=== PATIENT | male | born 1965 | race African-American/Black ===

== ENCOUNTER 2018-10-08 10:03 | Inpatient (IN) | payer OTHER ==
--- NOTE | 2018-10-08 12:00 | HP ---
COWS - Scale Resting Pulse: 1= SD 81-100 Sweatin= Chills/Flushing Restless Observation: 3= Extraneous Movement Pupil Size: 1= Pupils >than Normal Bone or Joint Aches: 2= Severe Diffuse Aches Runny Nose/ Eye Tearin= Runny Nose/Eyes GI Upset > 30mins: 2= Nausea/Diarrhea Tremor Observation: 2= Slight Tremor Visible Yawning Observation: 2= >3x During Session Anxiety or Irritability: 2=Irritable/Anxious Goose Flesh Skin: 0=Smooth Skin COWS Score: 18 CIWA Score - Admission Criteria [facility] Guidelines: Admission for Medically Managed Detox: Requires at least one of the followin. CIWA greater than 12 2. Seizures within the past 24 hours 3. Delirium tremens within the past 24 hours 4. Hallucinations within the past 24 hours 5. Acute intervention needed for co occurring medical disorder 6. Acute intervention needed for co occurring psychiatric disorder 7. Severe withdrawal that cannot be handled at a lower level of care (continued vomiting, continued diarrhea, abnormal vital signs) requiring intravenous medication and/or fluids 8. Admission ROS [facility] - [facility] Chief Complaint: i need help to stop using heroin and cocaine Allergies/Adverse Reactions: Allergies Allergy/AdvReac Type Severity Reaction Status Date / Time No Known Allergies Allergy Verified 10/08/18 10:28 History of Present Illness: this 53 years old male with heroin and cocaine dependence,seeking detox, withdrawal symptom, last detox 2008 [facility] s/p below knee amputation let in 2014 for osteomyelitis nicotine dependence 1/2 pack/day,requesting nicotine patch and gum weight loss insomnia iddm plan for rehab after detox also has hypertension and hyperchiolestrolemia Exam Limitations: No Limitations - Ebola screening Have you traveled outside of the country in the last 21 days: No Have you had contact with anyone from an Ebola affected area: No Do you have a fever: No - Review of Systems Constitutional: Chills, Loss of Appetite, Malaise, Night Sweats, Changes in sleep, Weakness, Unintentional Wgt. Loss EENT: reports: Tearing, Nose Congestion Respiratory: reports: No Symptoms reported Cardiac: reports: No Symptoms Reported GI: reports: Nausea, Vomiting, Abdominal cramping : reports: No Symptoms Reported Musculoskeletal: reports: Back Pain, Muscle Pain Integumentary: reports: Dryness Neuro: reports: Headache, Tremors Endocrine: reports: No Symptoms Reported Hematology: reports: No Symptoms Reported Psychiatric: reports: No Sypmtoms Reported, Judgement Intact, Mood/Affect Appropiate, Orientated x3, other (insomnia) Patient History - Patient Medical History Hx Anemia: No Hx Asthma: No Hx Chronic Obstructive Pulmonary Disease (COPD): No Hx Cancer: No Hx Cardiac Disorders: No Hx Congestive Heart Failure: No Hx Hypertension: Yes (on med) Hx Hypercholesterolemia: Yes (on med) Hx Pacemaker: No HX Cerebrovascular Accident: No Hx Seizures: No Hx Dementia: No Hx Diabetes: Yes (iddm) Hx Gastrointestinal Disorders: No Hx Liver Disease: No Hx Genitourinary Disorders: No Hx Sexually Transmitted Disorders: No Hx Renal Disease (ESRD): No Hx Thyroid Disease: No Hx Human Immunodeficiency Virus (HIV): Yes (2015 since) Hx Hepatitis C: No Hx Depression: No Hx Suicide Attempt: No Hx Bipolar Disorder: No Hx Schizophrenia: No Other Medical History: insomnia,no suicidal,no homicidal - Patient Surgical History Past Surgical History: Yes Hx Orthopedic Surgery: Yes (s/p bk amputation left 2015) - PPD History Previous Implant?: Yes Documented Results: Negative w/o proof Implanted On Prior [facility] Admission?: No PPD to be Administered?: Yes - Smoking Cessation Smoking history: Current every day smoker Have you smoked in the past 12 months: Yes Aproximately how many cigarettes per day: 10 Cigars Per Day: 0 Hx Chewing Tobacco Use: No Initiated information on smoking cessation: Yes 'Breaking Loose' booklet given: 10/08/18 - Substance & Tx. History Hx Alcohol Use: No Hx Substance Use: Yes Substance Use Type: Cocaine, Heroin Hx Substance Use Treatment: Yes (2008 [facility]) - Substances abused Heroin Substance route: Inhalation Frequency: Daily Amount used: 3 bags Age of first use: 21 Date of last use: 10/07/18 Cocaine Substance route: Inhalation Frequency: 1-2 times per week Amount used: $500 Age of first use: 21 Date of last use: 10/07/18 Family Disease History - Family Disease History Family History: Denies Admission Physical Exam [facility]HS - Vital Signs Vital Signs: Vital Signs - 24 hr 10/08/18 10/08/18 10:32 10:59 Temperature 98 F 98 F Pulse Rate 87 87 Respiratory 18 18 Rate Blood Pressure 138/91 138/91 - Physical General Appearance: Yes: Moderate Distress, Tremorous, Irritable, Sweating, Anxious HEENTM: Yes: Normal ENT Inspection, Normocephalic, CAROL, Pharynx Normal Respiratory: Yes: Within Normal Limits, Lungs Clear, Normal Breath Sounds Neck: Yes: Within Normal Limits, Supple, Trachea in good position Breast: Yes: Within Normal Limits Cardiology: Yes: Within Normal Limits, Regular Rhythm, Regular Rate, S1, S2 Abdominal: Yes: Within Normal Limits, Normal Bowel Sounds, Non Tender, Flat, Soft Genitourinary: Yes: Within Normal Limits Back: Yes: Muscle Spasm Musculoskeletal: Yes: Back pain, Muscle Pain Extremities: Yes: Tremors, Other (s/p below knee amputation left) Neurological: Yes: 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 intact, Fully Oriented, Alert, Motor Strength 5/5 Integumentary: Yes: Dry Lymphatic: Yes: Within Normal Limits - Diagnostic (1) Opioid dependence with withdrawal Current Visit: Yes Status: Acute (2) Cocaine dependence Current Visit: Yes Status: Acute (3) Weight loss Current Visit: Yes Status: Acute (4) History of below knee amputation Current Visit: Yes Status: Acute (5) IDDM (insulin dependent diabetes mellitus) Current Visit: Yes Status: Acute (6) Nicotine dependence Current Visit: Yes Status: Acute Cleared for Admission [facility] - Detox or Rehab [facility] Level of Care: Medically Managed Detox Regimen/Protocol: Methadone Breathalyzer - Breathalyzer Breathalyzer: 0 Urine Drug Screen - Test Device Lot number: [id number] Expiration date: 05/07/20 - Control Is test valid?: Yes - Results Drug screen NEGATIVE: No Urine drug screen results: AUNDREA-Cocaine, MOP-Opiates Inpatient Rehab Admission - Rehab Decision to Admit Inpatient rehab admission?: No
[2018-10-08] MEDS ORDERED: MAG HYDROX/AL HYDROX/SIMETH 30 ML UNIT-DOSE CUP PO PRN (12:13)
[2018-10-08] MEDS ORDERED: METHOCARBAMOL 500 MG TABLET PO PRN (12:13)
[2018-10-08] MEDS ORDERED: MAGNESIUM HYDROX 2400MG/30ML ORAL SUSPENSION 30 ML CUP PO PRN (12:13)
[2018-10-08] MEDS ORDERED: MAGNESIUM CITRATE 300 ML BOTTLE PO PRN (12:13)
[2018-10-08] MEDS ORDERED: IBUPROFEN 400 MG TABLET (FP) PO PRN (12:13)
[2018-10-08] MEDS ORDERED: MELATONIN 5 MG TABLETS PO PRN (12:13)
[2018-10-08] MEDS ORDERED: BISMUTH SUBSALICYLATE 524 MG/30 ML UD PO PRN (12:13)
[2018-10-08] MEDS ORDERED: ACETAMINOPHEN 325 MG TABLET (FP) PO PRN ×2 (12:13)
[2018-10-08] MEDS ORDERED: MENTHOL/PHENOL 1 EACH UD MM PRN (12:13)
[2018-10-08] MEDS ORDERED: hydrOXYzine PAMOATE 25 MG CAPSULE (FP) PO PRN (12:13)
[2018-10-08] MEDS ORDERED: ALBUTEROL SO4 8 GM HFA INHALER IH PRN (12:20)
[2018-10-08] MEDS ORDERED: METHADONE HCL 10 MG TABLET (FOR DETOX USE ONLY) PO ONE ×2 (13:00→23:00)
[2018-10-08] MEDS: NICOTINE 21 MG/24 HOURS TOPICAL PATCH TD SCH (13:46)
[2018-10-08] MEDS: NICOTINE POLACRILEX 2 MG GUM BUC PRN (13:46)
[2018-10-08] MEDS: diazePAM 5 MG TABLET PO PRN ×3 (13:47→23:49)
[2018-10-08 16:57] LABS: HEMOGLOBIN 11.2 GM/dL (11.7-16.9); MCH 25.9 pg (25.7-33.7); MCHC 31.9 g/dl (32.0-35.9); MEAN CELL VOLUME 81.3 fl (80-96); MEAN PLT VOLUME 8.4 fl (7.5-11.1); PLATELET COUNT 382 K/MM3 (134-434); RDW 14.8 % (11.9-15.9); WHITE BLOOD COUNT 7.3 K/mm3 (4.0-10.0)
[2018-10-08] MEDS: cloNIDine HCL 0.1 MG TABLET PO PRN (17:11)
[2018-10-08] MEDS ORDERED: INSULIN SLIDING SCALE (NOVOLOG) 1 VIAL SQ ONE ×2 (17:11→23:56)
[2018-10-08] MEDS: INSULIN (NOVOLOG) ASPART 100 UNITS/ML 10ML VIAL SQ SCH (17:13)
[2018-10-08 17:19] LABS: ALBUMIN 2.8 g/dl (3.4-5.0); ALK PHOS 109 U/L (45-117); ANION GAP 6 MMOL/L (8-16); BILIRUBIN,TOTAL 0.3 mg/dL (0.2-1); BLOOD UREA NITROGEN 16 mg/dL (7-18); CHLORIDE 98 mmol/L (98-107); CO2 26 mmol/L (21-32); CREATININE 1.6 mg/dL (0.55-1.3); POTASSIUM 4.6 mmol/L (3.5-5.1); SGOT/AST 13 U/L (15-37); SGPT/ALT 20 U/L (13-61); SODIUM 130 mmol/L (136-145); TOT PROT 7.7 g/dl (6.4-8.2)
[2018-10-08 17:21] LABS: GLUCOSE,RANDOM 510 mg/dL (74-106)
[2018-10-08 21:06] LABS: SICKLE CELL SCREEN NEGATIVE (NEGATIVE)
[2018-10-08] MEDS: THIAMINE HCL 100 MG TABLET (FP) PO SCH (23:51)
[2018-10-09] MEDS: diazePAM 5 MG TABLET PO PRN ×3 (05:39→16:35)
[2018-10-09] MEDS: cloNIDine HCL 0.1 MG TABLET PO PRN ×3 (05:40→19:16)
[2018-10-09] MEDS: INSULIN (NOVOLOG MIX 70/30) 100 UNITS/ML MDV SQ SCH ×2 (06:16→16:47)
[2018-10-09] MEDS ORDERED: INSULIN SLIDING SCALE (NOVOLOG) 1 VIAL SQ ONE ×4 (07:30→21:14)
[2018-10-09] MEDS: INSULIN (NOVOLOG) ASPART 100 UNITS/ML 10ML VIAL SQ SCH ×5 (07:54→21:20)
--- NOTE | 2018-10-09 08:26 | EKG ---
Test Reason : Blood Pressure : / mmHG Vent. Rate : 080 BPM Atrial Rate : 080 BPM P-R Int : 184 ms QRS Dur : 098 ms QT Int : 348 ms P-R-T Axes : 074 069 053 degrees QTc Int : 401 ms NORMAL SINUS RHYTHM NORMAL ECG NO PREVIOUS ECGS AVAILABLE Confirmed by ASHELY MIRANDA, ZAINA ([id number]) on 10/09/2018 8:26:22 AM Referred By: Confirmed By:ZAINA LUND MD
[2018-10-09] MEDS ORDERED: METHADONE HCL 5 MG TABLET (FOR DETOX USE ONLY) PO ONE (10:00)
[2018-10-09] MEDS: PRENATAL VITAMINS W/ FOLIC ACID TABLET (FP) PO SCH (10:10)
[2018-10-09] MEDS: NICOTINE POLACRILEX 2 MG GUM BUC PRN (10:14)
[2018-10-09] MEDS: NICOTINE 21 MG/24 HOURS TOPICAL PATCH TD SCH (10:15)
--- NOTE | 2018-10-09 11:49 | PN ---
[facility] COWS - Scale Resting Pulse: 0= IL 80 or Below Sweatin= Beads of Sweat on Face Restless Observation: 3= Extraneous Movement Pupil Size: 0= Normal to Room Light Bone or Joint Aches: 2= Severe Diffuse Aches Runny Nose/ Eye Tearin= None GI Upset > 30mins: 0= None Tremor Observation of Outstretched Hands: 1= Tremor Ruby, Not Seen Yawning Observation: 2= >3x During Session Anxiety or Irritability: 1=Feels Anxious/Irritable Goose Flesh Skin: 0=Smooth Skin COWS Score: 12 BHS Progress Note (SOAP) Subjective: Sweats and headache Objective: 10/09/18 11:50 Vital Signs 10/09/18 10/09/18 05:59 09:35 Temperature 97.7 F 97.2 F L Pulse Rate 80 67 Respiratory 20 18 Rate Blood Pressure 149/65 128/74 Assessment: 10/09/18 11:50 AOX3, in no respiratory distress EENT: WNL full ROM, ambulates in the unit with a wheelchair. withdrawal symptoms persists. Plan: continue detox increase fluids monitor withdrawal symptoms.
[2018-10-09] MEDS ORDERED: INSULIN (NOVOLOG MIX 70/30) 100 UNITS/ML MDV SQ ONE (16:44)
[2018-10-09] MEDS: THIAMINE HCL 100 MG TABLET (FP) PO SCH (21:20)
[2018-10-10] MEDS: diazePAM 5 MG TABLET PO PRN ×4 (01:18→17:05)
[2018-10-10] MEDS: cloNIDine HCL 0.1 MG TABLET PO PRN ×3 (01:19→17:05)
[2018-10-10] MEDS: INSULIN (NOVOLOG MIX 70/30) 100 UNITS/ML MDV SQ SCH ×2 (07:32→17:03)
[2018-10-10] MEDS: INSULIN (NOVOLOG) ASPART 100 UNITS/ML 10ML VIAL SQ SCH ×4 (07:33→22:34)
[2018-10-10] MEDS ORDERED: METHADONE HCL 10 MG TABLET (FOR DETOX USE ONLY) PO ONE (10:00)
[2018-10-10] MEDS: PRENATAL VITAMINS W/ FOLIC ACID TABLET (FP) PO SCH (10:55)
[2018-10-10] MEDS: NICOTINE 21 MG/24 HOURS TOPICAL PATCH TD SCH (10:56)
--- NOTE | 2018-10-10 13:41 | PN ---
S COWS - Scale Resting Pulse: 1= SC 81-100 Sweatin= No chills or Flushing Restless Observation: 3= Extraneous Movement Pupil Size: 0= Normal to Room Light Bone or Joint Aches: 2= Severe Diffuse Aches Runny Nose/ Eye Tearin= Runny Nose/Eyes GI Upset > 30mins: 1= Stomach Cramp Tremor Observation of Outstretched Hands: 2= Slight Tremor Visible Yawning Observation: 0= None Anxiety or Irritability: 0= None Goose Flesh Skin: 0=Smooth Skin COWS Score: 11 S Progress Note (SOAP) Subjective: Sweating, interrupted sleep Objective: 10/10/18 13:37 Last Vital Signs Temp Pulse Resp BP Pulse Ox 98.9 F 82 18 125/72 10/10/18 10:24 10/10/18 10:24 10/10/18 10:24 10/10/18 10:24 Laboratory Tests 10/08/18 10/08/18 10/08/18 12:00 12:00 12:00 WBC 7.3 RBC 4.30 Hgb 11.2 L Hct 35.0 L MCV 81.3 MCH 25.9 MCHC 31.9 L RDW 14.8 Plt Count 382 MPV 8.4 Sickle Cell Screen Negative Sodium 130 L Potassium 4.6 Chloride 98 Carbon Dioxide 26 Anion Gap 6 L BUN 16 Creatinine 1.6 H Creat Clearance w eGFR 45.62 POC Glucometer Random Glucose 510 H* Calcium 9.0 Total Bilirubin 0.3 AST 13 L ALT 20 Alkaline Phosphatase 109 Total Protein 7.7 Albumin 2.8 L RPR Titer Nonreactive 10/08/18 10/08/18 10/09/18 17:01 23:58 05:37 WBC RBC Hgb Hct MCV MCH MCHC RDW Plt Count MPV Sickle Cell Screen Sodium Potassium Chloride Carbon Dioxide Anion Gap BUN Creatinine Creat Clearance w eGFR POC Glucometer 512 472 388 Random Glucose Calcium Total Bilirubin AST ALT Alkaline Phosphatase Total Protein Albumin RPR Titer 10/09/18 10/09/18 10/09/18 11:30 16:38 20:42 WBC RBC Hgb Hct MCV MCH MCHC RDW Plt Count MPV Sickle Cell Screen Sodium Potassium Chloride Carbon Dioxide Anion Gap BUN Creatinine Creat Clearance w eGFR POC Glucometer 244 422 227 Random Glucose Calcium Total Bilirubin AST ALT Alkaline Phosphatase Total Protein Albumin RPR Titer 10/10/18 10/10/18 06:38 11:23 WBC RBC Hgb Hct MCV MCH MCHC RDW Plt Count MPV Sickle Cell Screen Sodium Potassium Chloride Carbon Dioxide Anion Gap BUN Creatinine Creat Clearance w eGFR POC Glucometer 452 138 Random Glucose Calcium Total Bilirubin AST ALT Alkaline Phosphatase Total Protein Albumin RPR Titer Labs reviewed: elevated glucose (has DM: on insulin), mild anemia, AKIL, hyponatremia noted Assessment: 10/10/18 13:43 Withdrawal symptoms Noted with DMT2 with hyperglycemia, mild anemia, AKIL and hyponatremia Plan: Continue detox Encourage PO water intake DMT2 with hyperglycemia: continue insulin coverage, continue finger stick glucose Mild anemia: could be r/t substance use disorder, encouraged abstinence from illicit drug use AKIL: encouraged PO water hydration, repeat BMP in AM Hyponatremia: asymptomatic, repeat serum Na level in AM
[2018-10-10] MEDS ORDERED: INSULIN SLIDING SCALE (NOVOLOG) 1 VIAL SQ ONE ×2 (16:46→22:31)
[2018-10-10] MEDS: THIAMINE HCL 100 MG TABLET (FP) PO SCH (22:29)
[2018-10-11] MEDS: diazePAM 5 MG TABLET PO PRN ×2 (00:36→08:34)
[2018-10-11] MEDS ORDERED: METHADONE HCL 5 MG TABLET (FOR DETOX USE ONLY) PO ONE (06:00)
[2018-10-11] MEDS ORDERED: INSULIN SLIDING SCALE (NOVOLOG) 1 VIAL SQ ONE (06:21)
[2018-10-11] MEDS: INSULIN (NOVOLOG MIX 70/30) 100 UNITS/ML MDV SQ SCH (06:27)
[2018-10-11] MEDS: INSULIN (NOVOLOG) ASPART 100 UNITS/ML 10ML VIAL SQ SCH (06:27)
[2018-10-11] MEDS: PRENATAL VITAMINS W/ FOLIC ACID TABLET (FP) PO SCH (10:21)
[2018-10-11 13:12] VITALS: BP 135/74; PULSE 80; TEMP 97.7
--- NOTE | 2018-10-11 14:39 | DS ---
[facility] Detox Discharge Summary Admission Date: 10/08/18 Discharge Date: 10/11/18 - History Present History: Cocaine Dependence, Opioid Dependence Additional Comments: PATIENT GOING TO [facility] ([place], [place]) FOR AFTERCARE. PATIENT WAS DISCHARGED FROM DETOX UNIT IN STABLE MEDICAL CONDITION. Pertinent Past History: Nicotine Dependence, IDDM, History Of Left [id number] Amputation for Osteomyelitis, Weight Loss, Insomnia, HTN, Hypercholesterolemia, H.I.V. - Physical Exam Results Vital Signs: Vital Signs Temperature 97.7 F 10/11/18 13:05 Pulse Rate 80 10/11/18 13:05 Respiratory Rate 18 10/11/18 13:05 Blood Pressure 135/74 10/11/18 13:05 O2 Sat by Pulse Oximetry (%) Pertinent Admission Physical Exam Findings: WITHDRAWAL SYMPTOMS. Laboratory Tests 10/08/18 10/08/18 10/08/18 12:00 12:00 12:00 WBC 7.3 RBC 4.30 Hgb 11.2 L Hct 35.0 L MCV 81.3 MCH 25.9 MCHC 31.9 L RDW 14.8 Plt Count 382 MPV 8.4 Sickle Cell Screen Negative Sodium 130 L Potassium 4.6 Chloride 98 Carbon Dioxide 26 Anion Gap 6 L BUN 16 Creatinine 1.6 H Creat Clearance w eGFR 45.62 POC Glucometer Random Glucose 510 H* Calcium 9.0 Total Bilirubin 0.3 AST 13 L ALT 20 Alkaline Phosphatase 109 Total Protein 7.7 Albumin 2.8 L RPR Titer Nonreactive 10/08/18 10/08/18 10/08/18 12:29 17:01 23:58 WBC RBC Hgb Hct MCV MCH MCHC RDW Plt Count MPV Sickle Cell Screen Sodium Potassium Chloride Carbon Dioxide Anion Gap BUN Creatinine Creat Clearance w eGFR POC Glucometer 498 512 472 Random Glucose Calcium Total Bilirubin AST ALT Alkaline Phosphatase Total Protein Albumin RPR Titer 10/09/18 10/09/18 10/09/18 05:37 11:30 16:38 WBC RBC Hgb Hct MCV MCH MCHC RDW Plt Count MPV Sickle Cell Screen Sodium Potassium Chloride Carbon Dioxide Anion Gap BUN Creatinine Creat Clearance w eGFR POC Glucometer 388 244 422 Random Glucose Calcium Total Bilirubin AST ALT Alkaline Phosphatase Total Protein Albumin RPR Titer 05/04/19 05/05/19 05/05/19 20:42 06:38 11:23 WBC RBC Hgb Hct MCV MCH MCHC RDW Plt Count MPV Sickle Cell Screen Sodium Potassium Chloride Carbon Dioxide Anion Gap BUN Creatinine Creat Clearance w eGFR POC Glucometer 227 452 138 Random Glucose Calcium Total Bilirubin AST ALT Alkaline Phosphatase Total Protein Albumin RPR Titer 10/10/18 10/10/18 10/11/18 16:38 21:57 06:15 WBC RBC Hgb Hct MCV MCH MCHC RDW Plt Count MPV Sickle Cell Screen Sodium Potassium Chloride Carbon Dioxide Anion Gap BUN Creatinine Creat Clearance w eGFR POC Glucometer 396 364 454 Random Glucose Calcium Total Bilirubin AST ALT Alkaline Phosphatase Total Protein Albumin RPR Titer LABS NOTED. - Treatment Hospital Course: Detox Protocol Followed, Detoxed Safely, Responded well, Discharged Condition Good, Rehab Referral Accepted Patient has Accepted a Rehab Referral to: [facility] ([place], [place]). - Medication Discharge Medications: Ambulatory Orders Darunavir/Cobicistat [Prezcobix 800 mg-150 mg Tablet] 1 each PO DAILY 10/08/18 Emtricitabine/Tenofov Alafenam [Descovy 200-25 mg Tablet (Nf)] 1 each PO DAILY 10/08/18 Insulin (Novolog 70/30) [Novolog Mix 70/30 Vial] 40 ml SQ BID 10/08/18 Zolpidem Tartrate [Ambien] 10 mg PO HS 10/08/18 - Diagnosis (1) Cocaine dependence Status: Acute Qualifiers: Substance use status: in withdrawal Qualified Code(s): F14.23 - Cocaine dependence with withdrawal (2) History of below knee amputation Status: Acute Qualifiers: Laterality: left Qualified Code(s): Z89.512 - Acquired absence of left leg below knee (3) IDDM (insulin dependent diabetes mellitus) Status: Acute (4) Nicotine dependence Status: Acute Qualifiers: Nicotine product type: cigarettes Substance use status: uncomplicated Qualified Code(s): F17.210 - Nicotine dependence, cigarettes, uncomplicated (5) Opioid dependence with withdrawal Status: Acute (6) Weight loss Status: Acute - AMA Did Patient Leave Against Medical Advice: No
== END 2018-10-11 13:10 | disposition other institution (70) | DRG 773 ==
LOC: YASAS 10:03 → Y6N 12:51
PROVIDERS: ADMIT Surgery; ATTEND Surgery
PROC: HZ2ZZZZ Detoxification Services for Substance Abuse Treatment (ICD-10-PCS; principal; 2018-10-08)
DX: F11.23 Opioid dependence with withdrawal (principal); F14.20 Cocaine dependence, uncomplicated; F17.210 Nicotine dependence, cigarettes, uncomplicated; Z21 Asymptomatic human immunodeficiency virus [HIV] infection status; E11.65 Type 2 diabetes mellitus with hyperglycemia; Z79.4 Long term (current) use of insulin; I10 Essential (primary) hypertension; G47.00 Insomnia, unspecified; E87.1 Hypo-osmolality and hyponatremia; D64.9 Anemia, unspecified; N17.9 Acute kidney failure, unspecified; R63.4 Abnormal weight loss; Z68.36 Body mass index [BMI] 36.0-36.9, adult; Z89.512 Acquired absence of left leg below knee
CPT/HCPCS: 36415; 80053; 82962; 85027; 85660; 86593; 93005; 93010; J0735